=== PATIENT | female | born 1995 | race Caucasian/White ===

== ENCOUNTER 2019-09-27 15:21 | Outpatient (CLI) | payer MEDICAID, SELFPAY ==
--- NOTE | 2019-09-27 15:32 | MM_ITS ---
WS: [id number] LEFT DIGITAL MAMMOGRAPHY WITH CAD CLINICAL INFORMATION: LT BREAST LUMP HISTORY: Left breast lump COMPARISON: None. TECHNIQUE: 4 views of the left breast were obtained. FINDINGS: The left breast is composed of heterogeneous fibroglandular density tissue, which can limit the detec tion of small underlying mass lesions. No definite parenchymal abnormalities in this area. Underlying parenchymal fatty tissue. Ultrasound is pending ULTRASOUND BREAST LEFT TECHNIQUE: Ultrasound left breast focused area of concern. CLINICAL INFORMATION: LT BREAST LUMP COMPARISON: None. FINDINGS: Ultrasound left breast at the 7:00 position in the area of palpable concern. Well-circumscribed hypoe choic lesion measuring 0.9 x 0.5 x 0.8 cm. This is nonspecific but may represent a fibroadenoma in a patient this age. Recommend further evaluation with ultrasound-guided biopsy considering palpable ester ure. MM/[place] [id number] IMPRESSION: BI-RADS: 4A-Suspicious: Low FOLLOW UP: US Guided Biopsy Recommended
== END 2019-09-27 15:22 | disposition home or self-care (01) ==
LOC: RAD 15:27 → RADSHAW 15:32
PROVIDERS: Family Provider Nurse Practitioner Family; PCP Nurse Practitioner; Visit Provider Nurse Practitioner
DX: N63.20 Unspecified lump in the left breast, unspecified quadrant (principal)
CPT/HCPCS: 76641; 77065

== ENCOUNTER 2019-10-12 12:33 | Outpatient (CLI) | payer SELFPAY ==
--- NOTE | 2019-10-12 13:00 | US_ITS ---
WS: [id number] ULTRASOUND-GUIDED LEFT BREAST BIOPSY HISTORY: LEFT breast mass at 10:00. COMPARISON: 09/27/2019 Procedure, risks and complications are explained to the patient. Medications are reviewed. Consent is obtained. The mass in the LEFT breast is localized with ultrasound. Skin is cleansed with ChloraPrep and anesth etized with 1% buffered lidocaine. Small dermatome is made. Under sterile conditions mass is biopsied with a 14-gauge Achieve needle. Multiple core biopsies are performed. Material placed in formalin an d sent to pathology for review. No complications encountered. Breast tissue marker (Bard ultrasound enhanced ribbon): None. Patient left the radiology suite with no complications. Patient is instructed to return to [facility] or [facility] with any concerns. 1. Uncomplicated core needle biopsy LEFT breast mass at 10:00. US/[place] [id number] IMPRESSION: PATHOLOGY: Fibroadenoma with myxoid stromal changes. No atypia or malignancy. RECOMMENDATION: See report No additional imaging follow-up. Anticipate screening mammography beginning at the age of 40.
== END 2019-10-12 12:34 | disposition home or self-care (01) ==
LOC: RAD 12:33
PROVIDERS: Family Provider Nurse Practitioner Family; PCP Nurse Practitioner; Visit Provider Nurse Practitioner
DX: R92.8 Other abnormal and inconclusive findings on diagnostic imaging of breast (principal); N63.22 Unspecified lump in the left breast, upper inner quadrant
CPT/HCPCS: 19083; 88305; J2001

== ENCOUNTER → 2020-04-09 14:11 | Outpatient (BNVA) | payer SELFPAY | PROVIDERS: Family Provider Nurse Practitioner Family; PCP Nurse Practitioner; Visit Provider Nurse Practitioner Family | DX: J02.0 Streptococcal pharyngitis (principal) | CPT/HCPCS: 87880 ==

== ENCOUNTER → 2020-11-14 16:08 | Outpatient (BNVA) | payer SELFPAY | PROVIDERS: Family Provider Nurse Practitioner Family; PCP Nurse Practitioner Family; Visit Provider Nurse Practitioner Family | DX: Z30.42 Encounter for surveillance of injectable contraceptive (principal); J32.9 Chronic sinusitis, unspecified; B96.89 Other specified bacterial agents as the cause of diseases classified elsewhere | CPT/HCPCS: 81025 ==

== ENCOUNTER → 2020-11-19 16:24 | Outpatient (BNVA) | payer SELFPAY | PROVIDERS: Family Provider Nurse Practitioner Family; PCP Nurse Practitioner Family; Visit Provider Nurse Practitioner Family | DX: Z30.42 Encounter for surveillance of injectable contraceptive (principal) | CPT/HCPCS: 81025 ==

== ENCOUNTER → 2021-04-03 14:22 | Outpatient (BNVA) | payer MEDICAID, SELFPAY | PROVIDERS: Family Provider Nurse Practitioner Family; PCP Nurse Practitioner Family; Visit Provider Nurse Practitioner Family | DX: M25.562 Pain in left knee (principal) | CPT/HCPCS: 73562 ==

== ENCOUNTER → 2021-04-06 09:19 | Outpatient (BNVA) | payer MEDICAID, SELFPAY | PROVIDERS: Family Provider Nurse Practitioner Family; PCP Nurse Practitioner Family; Visit Provider Nurse Practitioner Family | DX: D64.9 Anemia, unspecified (principal); I10 Essential (primary) hypertension; Z13.6 Encounter for screening for cardiovascular disorders; Z79.899 Other long term (current) drug therapy; E55.9 Vitamin D deficiency, unspecified | CPT/HCPCS: 80053; 80061; 82306; 82607; 82746; 83036; 83550; 84439; 84443; 85025 ==

== ENCOUNTER 2022-02-24 07:50 | Emergency (ER) | payer MEDICAID, SELFPAY ==
[2022-02-24] VITALS (47 sets, daily range): BP systolic 121–137; BP diastolic 67–88; PULSE 48–87; RESP 9–28; TEMP 36.4; O2SAT 95–100; BMI 30.2
--- NOTE | 2022-02-24 08:04 | PC.NURSE ---
Pt reports abdominal pain started last night and vomiting since on way to ED this morning. Reports pain is constant to RUQ and described as sharp. Reports hx of gallbladder issues and is supposed to see a specialist. Denies diarrhea, fevers, or symptoms. Lung sounds clear bilat. Bowel sounds present. Abdomen soft with tenderness to RUQ. Skin pink/warm/dry. Appears uncomfortable. Visitor at bedside. Call light within reach.
--- NOTE | 2022-02-24 08:31 | US_ITS ---
WS: [id number] RIGHT UPPER QUADRANT ULTRASOUND HISTORY: ruq pain COMPARISON: None available. Liver: 18.1 cm in length. There are mildly prominent liver. Simple cyst in the RIGHT lobe of the live r towards the diaphragm measures 2.2 x 1.9 x 1.7 cm. No solid mass or bile duct dilatation. Portal Vein: Normal hepatopetal flow with monophasic waveform. Gallbladder: Normally distended gallbladder. Several small stones are present. No pericholecystic flu id. CBD: 0.4 cm Pancreas: Normal size and echogenicity. Right kidney: 11.4 cm in length. Normal size and echogenicity. No hydronephrosis or mass. Aorta and IVC: Unremarkable abdominal aorta and IVC. No ascites. US/US gall bladder [id number] IMPRESSION: 1. Cholelithiasis with no bile duct dilatation or wall thickening. 2. Small hepatic cyst with a maximum diameter 2.2 cm.
--- NOTE | 2022-02-24 08:34 | W.ED.ABDPA2 ---
HPI - Abdominal Pain General: Chief Complaint: Abdominal Pain Stated Complaint: abd pain Time Seen by Provider: 02/24/22 08:15 Source: patient Mode of arrival: ambulatory Limitations: no limitations History of Present Illness: This patient presents to our emergency department this morning because of abdominal pain. She states she developed right-sided upper abdominal pain yesterday evening which has persisted throughout the night. She states it is pretty constant and sharp in nature. She states its not relieved by anything and has not worsened by anything at all. She states that she had similar pain in the past and had a imaging study in another facility which suggest that she may have gallbladder disease. She denies recent travel, exposure to infectious disease, recent antibiotic use. She is never had any abdominal surgeries. She denies any fevers. She denies any blood in her emesis. She denies any black tarry stools. She denies chest pain, shortness of breath cough etc. MD elicited complaint: abdominal pain Location: RUQ Severity: moderate Quality: cramping and sharp Exacerbating factors: nothing Relieving factors: nothing Associated Symptoms: Denies chills, dysuria, fever(s), hematochezia, hematemesis and melena Review of Systems Const: Denies: fever(s) or chills Eyes: Denies: change in vision ENMT: Denies: throat pain, odynophagia, nasal discharge or nasal congestion Card: Denies: chest pain, palpitations or irregular heart rhythm Resp: Denies: dyspnea, productive cough or non-productive cough GI: Denies: hematemesis, hematochezia or melena : Denies: flank pain, difficulty voiding, dysuria or urinary frequency Musc: Denies: neck pain, extremity pain or extremity swelling Skin/Breast: Denies: rash, pruritus or erythema Neuro: Denies: headache(s) Psych: Denies: anxiety or depression Endo: Denies: polyuria or polydipsia PFSH ED PFSH: Medical History Anemia Conjunctivitis Encounter for Depo-Provera contraception Essential hypertension Fatigue Hypertension screen Insomnia Left knee pain Medication management Strep pharyngitis Vitamin D deficiency Social History Smoking and tobacco status: current every day smoker Alcohol intake: never Physical Exam Narrative: EXAM NARRATIVE: Patient makes good eye contact. She is goal-directed in her speech. Const: COMMON NORMALS: patient oriented x3 and no limitations GENERAL APPEARANCE: cooperative NUTRITIONAL APPEARANCE: overweight HENMT: COMMON NORMALS: normocephalic, Normal nasal mucous membranes and turbinates present, moist oral mucous membranes and oropharynx normal HEAD & SCALP: normocephalic NOSE: Normal nasal mucous membranes and turbinates present Eye: COMMON NORMALS: Equal, round and reactive pupils present, EOMs intact bilaterally, conjunctivae normal and no scleral icterus CONJUNCTIVA: Yes conjunctivae normal PUPIL: Yes Equal, round and reactive pupils present Neck/C-Spine: COMMON NORMALS: full ROM, no lymphadenopathy, supple and no JVD Chest: COMMONS NORMALS: normal inspection of the chest and normal palpation of entire chest wall Resp: COMMON NORMALS: normal respiratory effort, No retractions and clear to auscultation bilaterally AUSCULTATION: clear to auscultation bilaterally Cardio: COMMON NORMALS: no JVD, regular rate, regular rhythm and No murmurs present (Cardio) RATE: regular rate RHYTHM: regular rhythm GI: COMMON NORMALS: Normal to inspection, nondistended, normoactive bowel sounds present, no masses and no bruits OTHER: Examination abdomen reveals tender to palpation in the right upper quadrant with inspiratory arrest with an palpating the same area. Some voluntary guarding. No rebound. No masses. No ecchymosis, no skin rashes. : COMMON NORMALS: Yes no CVA tenderness BLADDER/KIDNEY EXAM: Yes no CVA tenderness Back/Pelvis: COMMON NORMALS: no CVA tenderness, thoracic and lumbar spine normal to inspection, no thoracic nor lumbar tenderness and thoraco-lumbar ROM normal Extremity: COMMON NORMALS: normal to inspection, full ROM, no calf tenderness and no pedal edema Neuro: COMMON NORMALS: patient oriented x3, moves all extremities, no focal motor deficits and no sensory deficits noted CRANIAL NERVES: Yes CN normal except as noted Psych: COMMON NORMALS: mental status grossly normal and cooperative Skin: COMMON NORMALS: no rashes or lesions noted, turgor normal and no jaundice GENERAL SKIN EXAM: no rashes or lesions noted and turgor normal Course Reevaluation(s): Reevaluation #1: Patient comfortable. Discussed current findings. She has no evidence of cholecystitis or cholangitis or other worrisome surgical condition or infection condition at this time. Explained to her that likely she will need a cholecystectomy and we will attempt symptom control in the meantime. I will consult with general surgery regarding a follow-up. Time: 10:57 Consultations: Consultation #1: I discussed with general surgery who agreed to see the patient in his clinic tomorrow for follow-up and discussion regarding outpatient cholecystectomy. Time: 11:18 Vital Signs: Vital signs: Vital Signs Temperature 97.6 F 02/24/22 07:55 Pulse Rate 87 02/24/22 07:55 Respiratory Rate 20 H 02/24/22 08:51 Blood Pressure 134/88 02/24/22 07:55 Pulse Oximetry 100 02/24/22 08:51 Oxygen Delivery Me thod 02/24/22 07:55 MDM - Abdominal Pain Medical Decision Making This patient presents with right upper quadrant pain that has reoccurred previously. Work-up today revealed gallstones without any evidence of acute cholecystitis, or other biliary tract obstruction etc. She is pain controlled and will be suitable to be discharged with outpatient follow-up with general surgery for discussion regarding elective cholecystectomy. Medical Records I reviewed the patient's medical records. Lab Data I reviewed the patient's lab results. : 02/24/22 08:34 02/24/22 08:34 Labs/Radiology: Radiology Impressions Gallbladder Ultrasound 02/24/22 08:31 IMPRESSION: 1. Cholelithiasis with no bile duct dilatation or wall thickening. 2. Small hepatic cyst with a maximum diameter 2.2 cm. Laboratory Results WBC 11.6 10^3/uL (4.0-10.0) H 02/24/22 08:34 RBC 4.92 10^6/uL (4.1-5.3) 02/24/22 08:34 Hgb 15.0 g/dL (11.5-15.3) 02/24/22 08:34 Hct 44.5 % (37.0-47.0) 02/24/22 08:34 MCV 90.4 fl (81-99) 02/24/22 08:34 MCH 30.5 pg (28.0-34.0) 02/24/22 08:34 MCHC 33.7 g/dL (30.0-36.0) 02/24/22 08:34 RDW 11.5 % (12.1-15.1) L 02/24/22 08:34 Plt Count 314 10^3/cmm (130-400) 02/24/22 08:34 MPV 10.0 fL (7.4-10.4) 02/24/22 08:34 Neut % (Auto) 81.0 % 02/24/22 08:34 Lymph % (Auto) 11.8 % 02/24/22 08:34 [place] % (Auto) 5.6 % 02/24/22 08:34 Eos % (Auto) 1.0 % 02/24/22 08:34 Baso % (Auto) 0.3 % 02/24/22 08:34 Neut # (Auto) 9.35 10^3/uL (1.8-7.7) H 02/24/22 08:34 Lymph # (Auto) 1.4 10^3/uL (0.8-4.8) 02/24/22 08:34 [place] # (Auto) 0.7 10^3/uL (0.2-0.9) 02/24/22 08:34 Eos # (Auto) 0.1 10^3/uL (0.0-0.8) 02/24/22 08:34 Baso # (Auto) 0.0 10^3/uL (0.0-0.1) 02/24/22 08:34 Nucleated RBC % (auto) 0 % 02/24/22 08:34 Nucleated RBCs # 0.0 /100WBC 02/24/22 08:34 Sodium 137 mmol/L (136-145) 02/24/22 08:34 Potassium 3.6 mmol/L (3.5-5.1) 02/24/22 08:34 Chloride 100 mmol/L (98-107) 02/24/22 08:34 Carbon Dioxide 24 mmol/L (22-29) 02/24/22 08:34 Anion Gap 16.6 (5-19) 02/24/22 08:34 BUN 8 mg/dL (6-20) 02/24/22 08:34 Creatinine 0.7 mg/dL (0.5-0.9) 02/24/22 08:34 GFR Calculation 99.6 mL/min (90-130) 02/24/22 08:34 Glucose 103 mg/dL (65-115) 02/24/22 08:34 Calculated Osmolality 283 mOsm/kg (285-295) L 02/24/22 08:34 Calcium 10.9 mg/dL (8.5-10.5) H 02/24/22 08:34 Total Bilirubin 0.4 mg/dL (0.15-1.2) 02/24/22 08:34 AST 19 U/L (0-32) 02/24/22 08:34 ALT 23 U/L (0-33) 02/24/22 08:34 Alkaline Phosphatase 70 IU/L (35-105) 02/24/22 08:34 Total Protein 7.3 g/dL (6.6-8.7) 02/24/22 08:34 Albumin 4.3 g/dL (3.5-5.2) 02/24/22 08:34 Globulin 3.0 g/dL (1.3-4.6) 02/24/22 08:34 Lipase 24 U/L (13-60) 02/24/22 08:34 HCG, Qual Negative (Negative) 02/24/22 09:10 Urine Color Yellow (Yellow) 02/24/22 09:10 Urine Appearance Cloudy (CLEAR) 02/24/22 09:10 Urine pH 8 (5-7) H 02/24/22 09:10 Ur Specific [place] 1.025 (1.005-1.030) 02/24/22 09:10 Urine Protein Trace (Negative) 02/24/22 09:10 Urine Glucose (UA) Norm (Normal) 02/24/22 09:10 Urine Ketones Negative (Negative) 02/24/22 09:10 Urine Blood 2+ (Negative) H 02/24/22 09:10 Urine Nitrate Negative (Negative) 02/24/22 09:10 Urine Bilirubin Neg (Negative) 02/24/22 09:10 Prot Sulfosalicylic Acd Positive (Negative) 02/24/22 09:10 Urine Urobilinogen Norm mg/dL (Negative) 02/24/22 09:10 Ur Leukocyte Esterase Trace (Negative) H 02/24/22 09:10 Urine RBC 0-4 /hpf (0-2) H 02/24/22 09:10 Urine WBC 0-4 /hpf (0-5) H 02/24/22 09:10 Ur Squamous Epith Cells 0-4 /hpf (0-5) H 02/24/22 09:10 Amorphous Sediment 2+ /hpf 02/24/22 09:10 Urine Bacteria 1+ /hpf (NONE) H 02/24/22 09:10 Discharge Plan Discharge Patient Disposition: Home Clinical Impression: Biliary colic, Cholelithiasis Condition: Stable Prescriptions: New hyoscyamine sulfate [Levsin/SL] 0.125 mg tablet, sublingual 0.125 mg PO Q6H PRN (Reason: dyspepsia) Qty: 14 0RF No Action ceftriaxone 1 gram recon soln 1 g IM ONCE Qty: 1 0RF dexamethasone sodium phosphate 4 mg/mL solution 4 mg IM ONCE Qty: 1 0RF azithromycin 250 mg tablet See Rx Instructions PO .COMPLEX Qty: 6 0RF Rx Instructions: For 250 mg dose pack: take 500 mg today (day 1), then 250 mg for 4 days (days 2-5) PO methylprednisolone [Medrol (Rakesh)] 4 mg tablets,dose pack See Rx Instructions PO PER PKG DIR Qty: 21 0RF Rx Instructions: PO PER PKG DIR medroxyprogesterone 150 mg/mL suspension See Rx Instructions .ROUTE .COMPLEX Qty: 1 0RF Dose Instruction: ADMINISTER 1 ML IN THE MUSCLE 1 TIME Rx Instructions: ADMINISTER 1 ML IN THE MUSCLE 1 TIME Discharge Orders: Discharge ED (Routine); Ordered 02/24/22 Ordered By: Bhavesh Magaña Referrals: Sage Barker MD [Physician] - 1-3 days [place] Amaya, ORAL AND MAXILLOFACIAL SURGEON [Primary Care Provider] - Discharge Diet: Low Fat Discharge Activity: Resume usual activity Patient Instructions: Biliary Colic (ED), Abdominal Pain (ED), Opioid Safety Activity Restrictions/Additional Instructions: You may use the medications I have provided to help with your symptoms. Call general surgery and see him in his office tomorrow afternoon. If you have worsening symptoms you may return to this or the nearest emergency department. Coding Level of Care Code ED Paper Core Machine Operator for Mariusz Cruz Exam Comprehensive
[2022-02-24] MEDS: fentaNYL 50 mcg/mL INJ 2mL IVP (08:51)
[2022-02-24] MEDS: sodium chloride 0.9% 1,000 ML 999 ML IV (08:57)
[2022-02-24 08:59] LABS: Basophils % 0.3 %; Eosinophils # 0.1 10^3/uL (0.0-0.8); Hematocrit 44.5 % (37.0-47.0); Lymphocytes # 1.4 10^3/uL (0.8-4.8); Lymphocytes % 11.8 %; Mean Corpuscular HGB Conc 33.7 g/dL (30.0-36.0); Mean Corpuscular Hemoglobin 30.5 pg (28.0-34.0); Mean Corpuscular Volume 90.4 fl (81-99); Monocytes # 0.7 10^3/uL (0.2-0.9); Monocytes % 5.6 %; Neutrophils # 9.35 10^3/uL (1.8-7.7); Nucleated Red Blood Cells % 0 %; Platelet Count 314 10^3/cmm (130-400); Red Blood Count 4.92 10^6/uL (4.1-5.3); Red Cell Distribution Width 11.5 % (12.1-15.1); White Blood Count 11.6 10^3/uL (4.0-10.0)
--- NOTE | 2022-02-24 09:08 | PC.NURSE ---
pt requesting to hold zofran at this time to due nausea subsiding. Educated pt on side effects of fentanyl including nausea. Pt still requesting to hold zofran at this time. Pt ambulated to restroom for urine sample
[2022-02-24 09:20] LABS: HCG, Serum Qual Negative (Negative)
[2022-02-24 09:24] LABS: Alanine Aminotransferase 23 U/L (0-33); Albumin Level 4.3 g/dL (3.5-5.2); Alkaline Phosphatase 70 IU/L (35-105); Blood Urea Nitrogen 8 mg/dL (6-20); Calcium 10.9 mg/dL (8.5-10.5); Carbon Dioxide 24 mmol/L (22-29); Chloride 100 mmol/L (98-107); Glomerular Filtration Rate 99.6 mL/min (90-130); Glucose 103 mg/dL (65-115); Lipase 24 U/L (13-60); Osmolality Calculated 283 mOsm/kg (285-295); Sodium 137 mmol/L (136-145); Total Bilirubin 0.4 mg/dL (0.15-1.2); Total Protein 7.3 g/dL (6.6-8.7)
[2022-02-24 09:26] LABS: Anion Gap 16.6 (5-19); Potassium 3.6 mmol/L (3.5-5.1)
[2022-02-24 09:27] LABS: Aspartate Amino Transferase 19 U/L (0-32)
[2022-02-24 10:44] LABS: HCG Qualitative Urine. Negative (Negative)
[2022-02-24] MEDS: ondansetron 2 mg/ML SDV 2 mL 4 MG IVP (10:57)
[2022-02-24 11:02] LABS: Add Urine Microscopic? YES; Bilirubin Urine Neg (Negative); Blood Urine 2+ (Negative); Glucose Urine UA Norm (Normal); Ketones Urine Negative (Negative); Leukocyte Esterase Urine Trace (Negative); Nitrate Urine Negative (Negative); Protein Urine Trace (Negative); Specific Gravity, Urine 1.025 (1.005-1.030); Sulfosalicylic Acid Urine Positive (Negative); Urine Appearance Cloudy (CLEAR); Urine Color Yellow (Yellow); Urobilinogen Urine Norm (Negative); pH Urine 8 (5-7)
[2022-02-24 11:03] LABS: Amorphous Sediment Urine 2+ /hpf; Bacteria Urine 1+ /hpf; RBC Urine 0-4 /hpf (0-2); Squamous Epithelial Cell Urine 0-4 /hpf (0-5); WBC Urine 0-4 /hpf (0-5)
--- NOTE | 2022-02-24 11:35 | PC.NURSE ---
physician aware of pt HR ranging 40s-60s
--- NOTE | 2022-02-24 11:56 | PC.NURSE ---
Pt observed to remove BP cuff, pt states because she want to nap. Educated pt on importance of routine vital signs.
== END 2022-02-24 12:09 | disposition home or self-care (01) ==
PROVIDERS: Physician Assistant; Emergency Provider Emergency Medicine; PCP Nurse Practitioner Family
DX: K80.20 Calculus of gallbladder without cholecystitis without obstruction (principal); I10 Essential (primary) hypertension; F17.210 Nicotine dependence, cigarettes, uncomplicated; R10.9 Unspecified abdominal pain; K76.0 Fatty (change of) liver, not elsewhere classified
CPT/HCPCS: 76705; 80053; 81001; 81025; 83690; 84703; 85025; 96361; 96374; 96375; 99203; 99285; J2405; J3010; J7030

== ENCOUNTER → 2022-11-11 11:21 | Outpatient (BNVA) | payer BC, SELFPAY | PROVIDERS: PCP Nurse Practitioner; Visit Provider Nurse Practitioner | DX: Z30.09 Encounter for other general counseling and advice on contraception (principal); Z30.42 Encounter for surveillance of injectable contraceptive | CPT/HCPCS: 81025 ==

== ENCOUNTER → 2023-03-24 09:36 | Outpatient (BNVA) | payer BC, MEDICAID, SELFPAY | PROVIDERS: PCP Nurse Practitioner; Visit Provider Nurse Practitioner Family | DX: J30.2 Other seasonal allergic rhinitis (principal) | CPT/HCPCS: 82785; 86003 ==

== ENCOUNTER → 2023-08-10 09:49 | Outpatient (BNVA) | payer BC, MEDICAID, SELFPAY | PROVIDERS: PCP Nurse Practitioner; Visit Provider Nurse Practitioner Family | DX: R39.9 Unspecified symptoms and signs involving the genitourinary system (principal); R87.610 Atypical squamous cells of undetermined significance on cytologic smear of cervix (ASC-US); R87.810 Cervical high risk human papillomavirus (HPV) DNA test positive; N89.8 Other specified noninflammatory disorders of vagina | CPT/HCPCS: 81003; 87491; 87591 ==

== ENCOUNTER → 2024-09-19 15:34 | Outpatient (BNVA) | payer MEDICAID, SELFPAY | PROVIDERS: PCP Nurse Practitioner Family; Referring Provider Nurse Practitioner Family; Visit Provider Obstetrics & Gynecology | DX: Z01.419 Encounter for gynecological examination (general) (routine) without abnormal findings (principal) | CPT/HCPCS: 87624 ==

== ENCOUNTER 2024-10-01 18:42 | Emergency (ER) | payer MEDICAID, SELFPAY ==
[2024-10-01 18:51] VITALS: BP 125/90; PULSE 118; TEMP 36.7; O2SAT 98; BMI 33.2
--- NOTE | 2024-10-01 19:00 | ED_ITS ---
HPI - Skin/Abscess/Foreign Bdy General: Chief complaint: Skin/Abscess/Foreign Body Stated complaint: allergic reaction day 3 Time Seen by Provider: 10/01/24 18:48 Source: patient Mode of arrival: ambulatory Limitations: no limitations History of Present Illness: 29-year-old female states she has had a urticarial rash for the last 3 days she states she was seen at another ER yesterday and given Benadryl steroids has had no improvement. She had been on Flagyl did recently stop taking it think it may be causing this allergic reaction. States it is very pruritic she denies any shortness of breath denies any throat swelling. Associated symptoms: Deny chills, fever(s), nausea or vomiting Related Data Home Medications ?Medication ?Instructions ?Recorded ?Confirmed cholecalciferol (vitamin D3) 1,250 PO 09/19/24 5 mcg (50,000 unit) capsule Previous Rx's ?Medication ?Instructions ?Recorded albuterol sulfate 2.5 mg/3 mL 2.5 mg (3 mL) inhalation QID PRN 09/29/24 (0.083 %) solution for nebulization shortness of breat h or wheezing #90 mL albuterol sulfate 90 mcg/actuation 1 inh inhalation QI D PRN shortness 09/29/24 aerosol inhaler of breath or wheezing #8.5 g thaddeus azithromycin 500 mg tablet See Rx Instructions PO .COM PLEX #3 09/29/24 tabs prednisone 20 mg tablet 40 mg (2 x 20 mg) PO DAILY 3 days 09/29/24 #6 tabs Allergies Allergy/AdvReac Type Severity Reaction Status Date / Time metronidazole Allergy ALGY-Rash Verified 10/01/24 18:57 Sulfa (Sulfonamide Allergy ALGY-Hives Verified 10/01/24 18:57 Antibiotics) sulfacetamide (From Allergy ADR-Swelling Verified 10/01/24 18:57 Sulfamide) of the Eye Review of Systems Const: Denies: fever(s), chills, body aches or change in appetite ENMT: Denies: throat pain or dental pain Card: Denies: chest pain Resp: Denies: dyspnea GI: Denies: abdominal pain, nausea, vomiting or diarrhea Musc: Denies: neck pain or back pain Skin/Breast: Reports: rash Neuro: Denies: headache(s) All/Imm: Reports: urticaria PFSH ED PFSH: Medical History Gonorrhea Atypical squamous cell changes of undetermined significance (ASCUS) on cervical cytology with 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 (HPV) Vaginal discharge Urinary tract infection symptoms Insomnia Hypertension screen Vitamin D deficiency Anemia Essential hypertension Medication management Fatigue Left knee pain Encounter for Depo-Provera contraception Conjunctivitis Strep pharyngitis Family History Grandmother Hypertension Denies family history of Colon cancer Ovarian cancer Prostate cancer Diabetes Heart disease Hyperlipidemia Uterine cancer Thyroid disease Stroke Social History Smoking and tobacco/nicotine status: current every day tobacco/nicotine user (1/2 ppd) Physical Exam Const: COMMON NORMALS: no acute distress, patient oriented x3 and healthy appearing HENMT: COMMON NORMALS: normocephalic and atraumatic HEAD & SCALP: normocephalic and atraumatic Eye: COMMON NORMALS: conjunctivae normal CONJUNCTIVA: Yes conjunctivae normal Neck/C-Spine: COMMON NORMALS: full ROM and supple Resp: COMMON NORMALS: normal respiratory effort, No retractions, No use of accessory muscles and clear to auscultation bilaterally AUSCULTATION: clear to auscultation bilaterally Cardio: COMMON NORMALS: regular rate and regular rhythm RATE: regular rate RHYTHM: regular rhythm Extremity: COMMON NORMALS: full ROM Neuro: COMMON NORMALS: patient oriented x3, moves all extremities and no focal motor deficits Psych: COMMON NORMALS: mental status grossly normal, Normal thought process present and cooperative THOUGHT PROCESS: Normal thought process present Skin: COMMON NORMALS: no wounds NARRATIVE SKIN EXAM: Urticarial rash to arms legs and trunk Course Vital Signs: Vital signs: Vital Signs Temperature 98.0 F 10/01/24 18:51 Pulse Rate 112 H 10/01/24 19:26 Respiratory Rate 22 H 10/01/24 19:26 Blood Pressure 136/82 10/01/24 19:26 Pulse Oximetry 95 10/01/24 19:26 Oxygen Delivery Me thod Room Air 10/01/24 19:26 MDM - Skin/Abscess/Foreign Bdy Medicial Decision Making Patient presents here with urticaria likely allergic reaction her rash here has improved she has no airway involvement she stable for discharge she is to follow-up with her PCP return if worsening she understands agrees to plan Medical Records I reviewed the patient's medical records. No radiology studies performed this visit Discharge Plan Discharge Patient Disposition: Home Clinical Impression: Urticaria Condition: Stable Prescriptions: No Action ceftriaxone 1 gram recon soln 1 g IM ONCE Qty: 1 0RF albuterol sulfate 2.5 mg /3 mL (0.083 %) solution for nebulization 2.5 mg inhalation QID PRN (Reason: shortness of breath or wheezing) Qty: 90 2RF albuterol sulfate 90 mcg/actuation HFA aerosol inhaler 1 inh inhalation QID PRN (Reason: shortness of breath or wheezing) Qty: 8.5 0RF prednisone 20 mg tablet 40 mg PO DAILY 3 Days Qty: 6 0RF Rx Instructions: to start on 09/30/24 azithromycin 500 mg tablet See Rx Instructions PO .COMPLEX Qty: 3 0RF Rx Instructions: For 500 mg dose pack: take 500 mg once daily for 3 days PO cholecalciferol (vitamin D3) 1,250 mcg (50,000 unit) capsule PO Discharge Orders: Discharge ED (Routine); Ordered 10/01/24 Ordered By: Graham Echols Referrals: MO Amaya, STRAIGHT PIN MAKING MACHINE OPERATOR [Primary Care Provider] - Discharge Diet: Advance as tolerated Discharge Activity: Resume usual activity Patient Instructions: Urticaria (ED) Print Language: Hebrew Coding Level of Care Code ED Clinician Oncology for Mariusz Cruz
[2024-10-01] MEDS: EPINEPHrine 1 mg/mL INJ 0.5 MG IM (19:23)
[2024-10-01] MEDS: diphenhydrAMINE 50 mg/mL SDV 1mL IVP (19:24)
[2024-10-01] MEDS: methylPREDNISolone sod succ 125 mg/2 mL INJ IVP (19:24)
[2024-10-01] MEDS: famotidine 20 mg/2 mL INJ 40 MG IVP (19:24)
[2024-10-01 19:26] VITALS: BP 136/82; PULSE 112; RESP 22; O2SAT 95
[2024-10-01 20:00] VITALS: PULSE 105; RESP 20; O2SAT 94
[2024-10-01 20:35] VITALS: BP 129/86; PULSE 102; O2SAT 96
== END 2024-10-01 20:36 | disposition home or self-care (01) ==
PROVIDERS: Emergency Provider Emergency Medicine; PCP Nurse Practitioner Family
DX: L50.9 Urticaria, unspecified (principal); Z72.0 Tobacco use; I10 Essential (primary) hypertension
CPT/HCPCS: 96372; 96374; 96375; 99284; J0171; J1200; J2919; J3490